=== PATIENT | male | born 2005 | race Hispanic/Latino ===

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

== ENCOUNTER 2025-07-27 13:07 | Observation (INO) | payer OTHER, SELFPAY ==
--- OUTSIDE RECORDS SUMMARY | 2025-07-27 13:11 | XMS REPORT | Continuity of Care Document ---
Author Name Unknown Address [address] [place] [address] [facility] [place] Address [address] [place] [address] Care Team Providers Care Economics Department Chair Name Role Phone Yazmin Dutta Primary Care Physician [phone] Kaylah Benedict Attending Clinician Unavailable Israel Tamez DO Attending Clinician + [phone] Yazmin Dutta Attending Clinician [phone] REESE SOUSA Attending Clinician Unavailab le Allergies, Adverse Reactions, Alerts Allergy Name Allergy Type Status Severity Reaction(s) Onset Date Inactive Date Treating Clinician Comments Source NO KNOWN ALLERGIE S Drug Class Active [facility] Social History Social Habit Start Date Stop Date Quantity Comments Source History of tobacco use Cigarette Smoker [facility] Gender identity Torrey rojelio Sauceda [facility] Sexual orientation [facility]orial Sohail [facility] Sex 2025-07-26 14:11:55 2025-07-26 14:11:55 Male (finding) [facility] Tobacco use and exposure 2025-07-26 00:00:00 2025-07-26 00:00:00 Smokeless tobacco non-user [facility] History of Social function 2025-07-26 00:00:00 2025-07-26 00:00[facility] Alcoholic beverage intake 2025-04-05 00:00:00 2025-04-05 00:00:00 Ex-drinker (finding) [facility] Sex assigned at 2005 00:00:00 2005 00:00:00 [facility] Smoking Status Start Date Stop Date Source Never smoked tobacco Wilfrid Sauceda [facility] Ex-smoker 2025-03-22 00:00:00 2025-03-22 00:00:00 [facility] Medications Ordered Medication Name Filled Medication Name Start Date Stop Date Current Medication? Ordering Clinician Indication Dosage Frequency Signature (SIG) Comments Components Source sodium chloride 0.9 % bolus 1,000 mL [id number] 2024-10 15:10: 00 07-26 16:01 :00 No 1000mL 1,000 mL, Intravenou s, at 2,000 mL/hr, Administer over 30 Minutes, Once, On Thu07/26/25 at 1510, For 1 dose Wilfrid Sauceda [facility] lisinopriL 10 mg tablet 04-05 00:00: 00 Yes [id number] 10mg Take 1 tablet by mouth in the morning. [facility] Magnesium 250 mg Tab 03-22 15:53: 26 Yes Take by mouth. [facility] lisinopriL 5 mg tablet 03-22 00:00: 00 04-05 00:00 :00 No [id number] 5mg Take 1 tablet by mouth in the morning for 14 days. [facility] Vital Signs Vital Name Observation Time Observation Value Comments S ana lilia Systolic blood pressure 2025-07-26 17:21:00 129 mm[Hg] [facility] Diastolic blood pressure 2025-07-26 17:21:00 79 mm[Hg] [facility] Heart rate 2025-07-26 17:21:00 88 /min Pritesh lee [facility] Body temperature 2025-07-26 17:21:00 36.94 Chelo [facility] Respiratory rate 2025-07-26 17:21:00 18 /min [facility] Oxygen saturation in Arterial blood by Pulse oximetry 2025-07-26 17:21:00 100 /min [facility] Body height 2025-07-26 14:24:00 180.3 cm Torreyroger [facility]ady [facility] Body weight 2025-07-26 14:24:00 81.647 kg [facility] BMI 2025-07-26 14:24:00 25.10 kg/m2 Torrey [facility]dwellady [facility] Systolic blood pressure 2025-04-05 18:56:00 134 mm[Hg] [facility] Diastolic blood pressure 2025-04-05 18:56:00 87 mm[Hg] [facility] Heart rate 2025-04-05 18:56:00 53 /min Unive [facility] Respiratory rate 2025-04-05 18:56:00 16 /min [facility] Body height 2025-04-05 18:56:00 165.1 cm [facility] Body weight 2025-04-05 18:56:00 67.541 kg [facility] BMI 2025-04-05 18:56:00 24.78 kg/m2 [facility] Oxygen saturation in Arterial blood by Pulse oximetry 2025-04-05 18:56:00 100 /min [facility] Systolic blood pressure 2025-03-22 20:53:00 147 mm[Hg] [facility] Diastolic blood pressure 2025-03-22 20:53:00 92 mm[Hg] [facility] Heart rate 2025-03-22 20:52:00 62 /min [facility] height 2025-03-22 20:52:00 165.1 cm [facility] Body weight 2025-03-22 20:52:00 68.947 kg [facility] BMI 2025-03-22 20:52:00 25.29 kg/m2 [facility] Oxygen saturation in Arterial blood by Pulse oximetry 2025-03-22 20:52:00 99 /min [facility] Procedures Procedure Date / Time Performed Performing Clinician Source TROPONIN I HIGH SENSITIVITY CARESET (1ST HR) 2025-07-26 16:25:00 Angel Porter [facility] XR CHEST 1 VIEW 2025-07-26 15:41:06 Angel Porter [facility] COMPREHENSIVE METABOLIC PANEL 2025-07-26 15:30:00 Angel Porter [facility] CREATINE KINASE (CK TOTAL) 2025-07-26 15:30:00 Angel Porter [facility] LIPASE LEVEL 2025-07-26 15:30:00 Angel Porter [facility] COMPLETE BLOOD COUNT W/DIFF AND PLATELET 2025-07-26 15:30:00 Angel Porter [facility] TROPONIN I HIGH SENSITIVITY CARESET 2025-07-26 15:30:00 German Angel Tolbert [facility] TROPONIN I HIGH SENSITIVITY CARESET (BASELINE) 2025-07-26 15:30:00 Angel Porter [facility] COMPLETE BLOOD COUNT 2025-07-26 15:30:00 GermanAnthony Tomasz [facility] AUTOMATED DIFFERENTIAL 2025-07-26 15:30:00 GermanAlphonse orly Tolbert [facility] ECG 12 lead [facility] Plan of Care Planned Activity Planned Date Details Comments Source Encounters Start Date/Time End Date/Time Encounter Type Admission Type Attending [facility] Care Department Encounter ID Source 2025-07-26 00:00:00 2025-07-26 22:03:05 [facility] [id number] [facility] 2025-07-26 14:59:00 2025-07-26 17:22:00 Emergency E Israel Tamez [facility] [id number] [facility] 2025-04-05 14:00:00 2025-04-05 14:19:20 [facility] [id number] [facility] 2025-03-25 00:00:00 2025-03-25 12:54:05 Telephone PinedaMariYazmin [facility] [id number] [facility] 2025-03-24 00:00:00 2025-03-24 13:10:30 Telephone Mari Pinedaanne [facility] [id number] [facility] 2025-03-23 09:45:00 2025-03-23 09:47:55 Nurse Visit R REESE SOUSA [facility] [id number] [facility] 2025-03-22 16:00:00 2025-03-22 16:20:36 [facility] [id number] [facility] Results Test Description Test Time Test Comments Results Resul t Comments Source XR chest 1 view 2025-07-26 15:47:05 No acute findings. ELECTRONICALLY SIGNED BY CARLOS CASILLAS MD ON 07/26/2025 AT 15:47.PROCEDURE INFORMATION: Exam: XR Chest Exam date and time: 07/26/2025 3:37 PM Age: 19 years old Clinical indication: Pain TECHNIQUE: Imaging protocol: Radiologic exam of the chest. Views: 1 view. COMPARISON: No relevant prior studies available. FINDINGS: Lungs: Unremarkable. No consolidation. Pleural spaces: Unremarkable. No pleural effusion. No pneumothorax. Heart/Mediastinum: Unremarkable. No cardiomegaly. Bones/joints: No acute findings. Carlos Casillas MD - 07/26/2025Formattin g of this note might be different from the original.PROCEDURE INFORMATION: Exam: XR Chest Exam date and time: 07/26/2025 3:37 PM Age: 19 years old Clinical indication: Pain TECHNIQUE: Imaging protocol: Radiologic exam of the chest. Views: 1 view. COMPARISON: No relevant prior studies available. FINDINGS: Lungs: Unremarkable. No consolidation. Pleural spaces: Unremarkable. No pleural effusion. No pneumothorax. Heart/Mediastinum: Unremarkable. No cardiomegaly. Bones/joints: No acute findings. IMPRESSION:No acute findings. ELECTRONICALLY SIGNED BY CARLOS CASILLAS MD ON 07/26/2025 AT 15:47. [facility] Epic Notes Date/Time Note Provider Source * [place] Suicide Severity Rating Scale (Screener/Recent Self-Report) Question Answer Date of Assessment Author 1. Wish to be (Past 1 Month) No 025 5:20 PM CDT Belen Vera, JANET 2. Non-Specific Active Suici esther Thoughts (Past 1 Month) No 07/26/2025 5:20 PM CDT Doris Vera, JANET 6. Suicidal Behavior (Lifetime) No 5:20 PM CDT Belen Vera, JANET [id number] 22:03:05* Kaylah Benedict - 07/26/2025 9:54 PM CDT Patient FTF to request assistance with healthcare services. CHW educated patient on Educate on ER usage or provided CHW educated patient on Good Rx or provided CHW educated patient on Nurse Health Line or provided CHW educated patient on PCP/Medical Home or provided Continuing Care Good Rx No address on file Website: [email or web address] Request Status: Pending - No Request Sent Services: Prescription Assistance Resource for: Financial Resource Strain Nurse Health Line No address on file Request Status: Pending - No Request Sent Services: Help Hotlines Resource for: Caregiver Health, Depression, Stress [facility] ([facility]) - [facility] [address], [place] [address] Website: [email or web address] Request Status: Pending - No Request Sent Services: Disease Management, Disease Screenings, Health Education, Primary Care Resource for: Adolescent Education, Caregiver Education and Work, Child Education Languages: Norwegian, Irish Cost: Reduced Cost Hours of Operation Thursday -- Thursday 8:00 AM - 6:00 PM Thursday 8:00 AM - 6:00 PM Thursday 8:00 AM - 6:00 PM 8:00 AM - 6:00 PM Thursday 8:00 AM - 6:00 PM Thursday -- resource to patient. Follow up needed active. Follow up by ER Navigator [id number] 22:03:05 [id number] 22:03:05 [id number] 17:22:36* [id number] 17:22:36* Calculated C-SSRS Risk Score (Lifetime/Recent) Answer Date of Assessment Author No Risk Indicated 07/26/2025 5:20 PM ASTERT Belen Vera, JANET * [place] Suicide Severity Rating Scale (Screener/Recent Self-Report) Question Answer Date of Assessment Author 1. Wish to be (Past 1 Month) No 025 5:20 PM ASTERT Belen Vera, JANET 2. Non-Specific Active Suici esther Thoughts (Past 1 Month) No 07/26/2025 5:20 PM ASTERT Doris Vera, JANET 6. Suicidal Behavior (Lifetime) No 5:20 PM ASTERT Belen Vera, JANET [id number] 17:22:36Pending Results Health Maintenance Due Date Last Done Comments Annual Physical 2008 Varicella Vaccines (1 of 2 - 13+ 2-dose series) 2018 HPV Vaccines (1 - Male 3-dos e series) 2020 DTaP/Tdap/Td Vaccines (1 - Tdap) 2024 Hepatitis B Vaccines (1 of 3 - 19+ 3-dose series) 2024 Influenza Vaccine (#1) 2025 Respiratory Syncytial Virus (RSV) Adult Series (1 - 1-dose 75+ series) 2080 HIB Vaccines Aged Out No longer eligi ble based on patient's age to complete this topic Hepatitis A Vaccines Aged Out No long er eligible based on patient's age to complete this topic IPV Vaccines Aged Out No longer eligi ble based on patient's age to complete this topic Meningococcal Vaccine Aged Out No haley mari eligible based on patient's age to complete this topic Pneumococcal Vaccine: Pediat rics (0 to 5 Years) and At-Risk Patients (6 to 64 Years) Aged Out No longer eligible b ased on patient's age to complete this topic Rotavirus Vaccines Aged Out No longer eligible based on patient's age to complete this topic [id number] 17:22:36 Diagnosis Tingling - Primary Disturbance of skin sensation [id number] 17:22:36 [id number] 12:53:19 Images from the original note were not included. Notified patient: Yazmin Pineda FNP [facility] Nurse Please notify the patient of the following lab results: Your recent labs showed mildly decreased HDL( healthy cholesterol). This can improve with lifestyle changes. I recommend exercise such as walking 30 minutes 4-5 times a week , avoiding alcohol and maintaining a healthy weight. Diet admas you can follow a mediterranean diet( lean meats, low fat dairy products, cook with olive oil, avoid palm oil, eat low fat breads/cereals/grains, avoid fried foods). I also recommend reducing white bread, white potatoes, white rice, white bread, sodas, candies and eating more complex grains like quinoa, brown rice, vegetables and fruits. No evidence of anemia or infection. No evidence of kidney dysfunction or liver dysfunction. Potassium is slightly elevated which may be because of mild dehydration. Please make sure you are drinking adequate amounts of water. Your thyroid is functioning properly. No evidence of diabetes. These labs are essentially normal and can be repeated at next annual physical exam. Patient verbal understanding and had no questions or concerns at this time. Za Paulino MAChillicothe [id number] 12:57:51 Chart notes reviewed RX for Lisinopril sent to pharmacy on 03/22 per provider. Spoke with patient. Patient states he went to pharmacy on 03/23 to pickling grader RX and per pharmacy no RX received. Notified patient clinic will contact pharmacy. Patient verbalized understanding. Pharmacy called per nurse. Spoke with Sami with [facility] pharmacy. Per pharmacy RX was received and was entered incorrectly by pharmacy. Sami updated patient and states he will notify patient RX is available for pickling grader. Mariola Delacruz [id number] 10:42:17 Tete Yadav is a 19 year old male Calling to have prescription of lisinopriL resent to pharmacy. [facility]
[2025-07-27] MEDS ORDERED: ASPIRIN 81 MG CHEWABLE TABLET ONE (13:48)
[2025-07-27 14:14] LABS: Absolute Lymphocytes (CBC) 1.1 K/uL (0.7-4.9); Hematocrit 44.6 % (39.6-49.0); Hemoglobin 15.1 g/dL (13.6-17.9); MCH 30.2 pg (27.0-35.0); MCHC 33.9 g/dL (32.0-36.0); MCV 88.9 fL (80-100); MPV 9.5 fL (7.6-11.3); Nucleated RBC Absolute Count 0.0 (0-0); Nucleated Red Blood Cells % 0.1 % (0-0); RBC Red Blood Cell Count 5.01 M/uL (4.33-5.43); White Blood Count 7.60 thou/uL (4.3-10.9)
[2025-07-27 14:30] LABS: ALT/SGPT 34.0 U/L (16-61); AST/SGOT 16.0 U/L (15-37); Albumin 3.8 g/dL (3.4-5.0); Albumin/Globulin Ratio 1.1 (1.1-1.8); Alkaline Phosphatase 111.0 U/L (45-117); Anion Gap 8.8 mEq/L (5.0-15.0); BUN Blood Urea Nitrogen 9.0 mg/dL (7-18); Bilirubin Indirect, Calculated 1.3 mg/dL (0.2-0.8); Globulin 3.4 g/dL (2.3-3.5); Glucose Level 104.0 mg/dL (74-106); Magnesium 2.1 mg/dL (1.6-2.4); Potassium 3.8 mEq/L (3.5-5.1)
[2025-07-27 14:34] LABS: Troponin High Sensitivity 63.1 pg/mL (<58.9)
--- NOTE | 2025-07-27 14:42 | EDPHYS ---
Physician Documentation [facility] Name: Robyn Yadav Age: 19 yrs Sex: Male : 2005 Arrival Date: 07/27/2025 Time: 13:07 Bed 6 Private MD: ED Physician Anthony Gar HPI: 07/27 13:39 This 19 yrs old Male presents to ER via Ambulatory with complaints of Abnormal ms3 Lab Results. 13:39 19-year-old male with past medical history of hypertension presents to the emergency wy3 department for chest pain, cold hands, shortness of breath that developed yesterday. Patient states he is currently not having pain at this time. Patient denies nausea or vomiting. Patient does endorse shortness of breath.. Historical: - Allergies: 13:20 No Known Allergies; dd2 - Home Meds: 13:20 lisinopril 10 mg Oral tablet daily for hypertension [Active]; dd2 - PMHx: 13:20 Hypertensive disorder; dd2 - PSHx: 13:20 None; dd2 - Immunization history:: Adult Immunizations up to date. - Infectious Disease History:: Denies. - Social history:: Smoking status: Reported history of juuling and/or vaping. ROS: 13:39 Constitutional: Negative for fever, and chills. Respiratory: Negative for shortness of ms3 breath, cough, wheezing, and pleuritic chest pain, 13:39 Abdomen/GI: Negative for abdominal pain, nausea, vomiting, diarrhea, and constipation, MS/Extremity: Negative for injury and deformity, Skin: Negative for injury, rash, and discoloration, 13:39 Cardiovascular: Positive for chest pain, Exam: 13:39 Constitutional: This is a well developed, well nourished patient who is awake, alert, ms3 and in no acute distress. Cardiovascular: Regular rate and rhythm with a normal S1 and S2. No gallops, murmurs, or rubs. Normal PMI, no JVD. No pulse deficits. Respiratory: Lungs have equal breath sounds bilaterally, clear to auscultation and percussion. No rales, rhonchi or wheezes noted. No increased work of breathing, no retractions or nasal flaring. Abdomen/GI: Soft, non-tender, with normal bowel sounds. No distension or tympany. No guarding or rebound. No evidence of tenderness throughout. Skin: Warm, dry with normal turgor. Normal color with no rashes, no lesions, and no evidence of cellulitis. MS/ Extremity: Pulses equal, no cyanosis. Neurovascular intact. Full, normal range of motion. 14:28 ECG was reviewed by the Attending Physician. ms3 Vital Signs: 13:18 BP 137 / 70; Pulse 75; Resp 16; Temp 98.3; Pulse Ox 99% on R/A; Weight 68.04 kg; Height dd2 5 ft. 5 in. ; Pain 5/10; 14:06 BP 143 / 79; Pulse 56; Resp 18; Temp 97.8; Pulse Ox 98% on R/A; nh2 15:00 BP 129 / 87; Pulse 74; Resp 15; Pulse Ox 100% on R/A; nh2 16:53 BP 130 / 94; Pulse 64; Resp 18; Temp 97.2(TE); Pulse Ox 100% on R/A; nh2 13:18 Body Mass Index 24.96 (68.04 kg, 165.1 cm) - Percentile 72.7 % dd2 13:18 Pain Scale: Adult dd2 MDM: 13:39 Medical Screening Exam initiated ms3 13:39 Differential diagnosis: abnormal EKG, acute myocardial infarction, coronary artery ms3 disease chest wall pain. Scoring Tools PERC Rule for PE Age > /= 50 No (0) HR > /= 100 No (0) O2 Sat Room Air < 95% No (0) Unilateral leg swelling No (0) Hemoptysis No (0) Recent surgery or trauma </= 4 weeks ago, requiring treatment with General Anesthesia No (0) Prior PE or DVT No (0) Hormone use No (0). 14:43 HEART Score: History: Slightly Suspicious (0), ECG: Non specific repolarization ms3 disturbance / LBTB / PM (1), Age: < or = 45 years (0), Risk Factors: 1 or 2 risk factors (1), Troponin: > 1 and < 3 x normal limit (1), Total Score = 3. Data reviewed: vital signs, nurses notes, lab test result(s), EKG, radiologic studies, and as a result, I will admit patient. Consideration of Admission/Observation Patient was admitted/placed on observation. Management of patient was discussed with the following: Hospitalist: Dr Walton. Derrick Worker: Dr Mi. I considered the following discharge prescriptions or medication management in the emergency department Medications were administered in the Emergency Department. See MAR. Independent interpretation of the following test(s) in the Emergency Department EKG: See my EKG interpretation above. Counseling: I had a detailed discussion with the patient and/or guardian regarding the historical points, exam findings, and any diagnostic results supporting the discharge/admit diagnosis, lab results, the need for further work-up and treatment in the hospital. ED course: Discussed elevated troponin with patient and recommendation for observation. Patient understands and agrees with plan. Discussed case with hospitalist group and they will observe patient. Patient was discussed with Dr. Mi and he would like the troponins trended. 07/27 13:36 Order name: Basic Metabolic Panel; Complete Time: 14:36 ms3 07/27 13:36 Order name: CBC with Diff; Complete Time: 14:36 ms3 07/27 13:36 Order name: LFT's; Complete Time: 14:36 ms3 07/27 13:36 Order name: Magnesium; Complete Time: 14:36 ms3 07/27 13:36 Order name: Troponin HS; Complete Time: 14:36 ms3 07/27 14:50 Order name: D-Dimer ms3 07/27 14:50 Order name: NT PRO-BNP ms3 07/27 14:50 Order name: PT-INR ms3 07/27 14:50 Order name: CRP ms3 07/27 15:13 Order name: UDS ms3 07/27 16:07 Order name: Basic Metabolic Panel EDMS 07/27 16:07 Order name: Basic Metabolic Panel EDMS 07/27 16:07 Order name: CBC with Automated Diff EDMS 07/27 16:07 Order name: CBC with Automated Diff EDMS 07/27 16:07 Order name: Troponin High Sensitivity EDMS 07/27 16:07 Order name: Troponin High Sensitivity EDMS 07/27 16:07 Order name: Troponin High Sensitivity EDMS 07/27 13:36 Order name: XRAY Chest (1 view) ms3 07/27 16:07 Order name: Echo with Doppler EDMS 07/27 13:36 Order name: EKG; Complete Time: 13:37 ms3 07/27 15:15 Order name: EKG; Complete Time: 15:16 ms3 07/27 16:05 Order name: CONS Physician Consult EDMS 07/27 13:36 Order name: Cardiac monitoring; Complete Time: 14:00 ms3 07/27 13:36 Order name: EKG - Nurse/Tech; Complete Time: 14:00 ms3 07/27 13:36 Order name: IV Saline Lock; Complete Time: 14:00 ms3 07/27 13:36 Order name: Labs collected and sent; Complete Time: 14:00 ms3 07/27 13:36 Order name: O2 Per Protocol; Complete Time: 14:00 ms3 07/27 13:36 Order name: O2 Sat Monitoring; Complete Time: 14:00 ms3 EC:28 Rate is 72 beats/min. Rhythm is regular. QRS [place] is Normal. [place] interval is normal. ms3 Clinical impression: NSR w/ Non-specific ST/T Changes. Interpreted by me. Reviewed by me. Administered Medications: 14:00 Drug: Aspirin PO Chewable Tablet 324 mg PO once; 81 mg tablets x 4 Route: PO; nh2 15:00 Follow up: Response: No adverse reaction nh2 Disposition Summary: 07/27/25 14:42 Hospitalization Ordered Notes: Hospitalization Status: Observation ms3 Provider: Maycol Walton ms3 Location: Telemetry/MedSurg (observation) ms3 Condition: Stable ms3 Problem: new ms3 Symptoms: are unchanged ms3 Bed/Room Type: Standard ms3 Room Assignment: 403(07/27/25 16:02) bc6 Diagnosis - Elevated troponin ms3 - Chest pain, unspecified ms3 - Essential (primary) hypertension ms3 Discharge Instructions: - Discharge Summary Sheet iw Forms: - Family Work Release iw - Medication Reconciliation Form ms3 - SBAR form ms3 - Leadership Thank You Letter ms3 Signatures: Dispatcher [employer] EDMS Anthony Gar, DO DO ms3 Bessy Alford bc6 ELIZABETH WELSH RN RN dd2 Jorge Gaines Jr RN RN nh2 Corrections: (The following items were deleted from the chart) 16:02 14:42 ms3 bc6
--- NOTE | 2025-07-27 14:42 | ER ---
Nurse's Notes [facility] Name: Robyn Yadav Age: 19 yrs Sex: Male : 2005 Arrival Date: 07/27/2025 Time: 13:07 Bed 6 Private MD: Diagnosis: Elevated troponin;Chest pain, unspecified;Essential (primary) hypertension Presentation: 07/27 13:18 Chief complaint: Patient states: BEGAN HAVING CHEST TIGHTNESS, HANDS COLD AND BODY dd2 TINGLING YESTERDAY AT NOON. WENT TO [facility] ER AND D/C HOME. MOM TOOK TO URGENT CARE NEXT LEVEL AND NURSE ADVISED TO COME TO ER FOR ABNORMAL EKG. Coronavirus screen: At this time, the client does not indicate any symptoms associated with coronavirus-19. Ebola Screen: No symptoms or risks identified at this time. Initial Sepsis Screen: Does the patient meet any 2 criteria? No. Patient's initial sepsis screen is negative. Does the patient have a suspected source of infection? No. Patient's initial sepsis screen is negative. Risk Assessment: Do you want to hurt yourself or someone else? Patient reports no desire to harm self or others. Onset of symptoms was July 26, 2025 at 12:00. 13:18 Method Of Arrival: Ambulatory dd2 13:18 Acuity: ALIN 3 dd2 Triage Assessment: 13:20 General: Appears in no apparent distress. well groomed, well nourished, Behavior is dd2 cooperative, appropriate for age, anxious. Pain: Complains of pain in chest. Cardiovascular: Reports chest pain, JVD is absent Patient's skin is warm and dry. Historical: - Allergies: 13:20 No Known Allergies; dd2 - Home Meds: 13:20 lisinopril 10 mg Oral tablet daily for hypertension [Active]; dd2 - PMHx: 13:20 Hypertensive disorder; dd2 - PSHx: 13:20 None; dd2 - Immunization history:: Adult Immunizations up to date. - Infectious Disease History:: Denies. - Social history:: Smoking status: Reported history of juuling and/or vaping. Screenin:00 [facility] ED Fall Risk Assessment (Adult) History of falling in the last 3 months, nh2 including since admission No falls in past 3 months (0 pts) Confusion or Disorientation No (0 pts) Intoxicated or Sedated No (0 pts) Impaired Gait No (0 pts) Mobility Assist Device Used No (0 pt) Altered Elimination No (0 pt) Score/Fall Risk Level 0 - 2 = Low Risk Oriented to surroundings, Maintained a safe environment, Educated pt \T\ family on fall prevention, incl call for assistance when getting out of bed, Assessed \T\ reinforced patient's understanding of fall precautions. Abuse screen: Denies threats or abuse. Denies injuries from another. Nutritional screening: No deficits noted. Tuberculosis screening: No symptoms or risk factors identified. Assessment: 13:40 Reassessment: pt just brought to bed from triage, assumed care as primary nurse at this nh2 time. 14:00 General: Appears in no apparent distress. Behavior is cooperative, anxious. Pain: nh2 Complains of pain in chest Pain does not radiate. Pain currently is 4 out of 10 on a pain scale. Quality of pain is described as pressure Pain began 1 day ago. Is intermittent. Neuro: Level of Consciousness is awake, alert, obeys commands, Oriented to person, place, time, situation, Appropriate for age. Cardiovascular: Patient's skin is warm and dry. Rhythm is sinus rhythm. Respiratory: Reports shortness of breath on exertion Airway is patent Trachea midline Respiratory effort is even, unlabored, Respiratory pattern is regular, symmetrical, Breath sounds are clear bilaterally. GI: Abdomen is round non-distended, Patient currently denies nausea, vomiting. : No signs and/or symptoms were reported regarding the genitourinary system. EENT: No signs and/or symptoms were reported regarding the EENT system. Derm: Skin is intact, Skin is dry, Skin is pink, warm \T\ dry. Skin temperature is warm. Musculoskeletal: Circulation, motion, and sensation intact. Range of motion: intact in all extremities. 15:00 Reassessment: Patient and/or family updated on plan of care and expected duration. Pain nh2 level reassessed. Patient is alert, oriented x 3, equal unlabored respirations, skin warm/dry/pink. 16:00 Reassessment: Patient and/or family updated on plan of care and expected duration. Pain nh2 level reassessed. Patient is alert, oriented x 3, equal unlabored respirations, skin warm/dry/pink. Patient denies pain at this time. Vital Signs: 13:18 BP 137 / 70; Pulse 75; Resp 16; Temp 98.3; Pulse Ox 99% on R/A; Weight 68.04 kg; Height dd2 5 ft. 5 in. ; Pain 5/10; 14:06 BP 143 / 79; Pulse 56; Resp 18; Temp 97.8; Pulse Ox 98% on R/A; nh2 15:00 BP 129 / 87; Pulse 74; Resp 15; Pulse Ox 100% on R/A; nh2 16:53 BP 130 / 94; Pulse 64; Resp 18; Temp 97.2(TE); Pulse Ox 100% on R/A; nh2 13:18 Body Mass Index 24.96 (68.04 kg, 165.1 cm) - Percentile 72.7 % dd2 13:18 Pain Scale: Adult dd2 ED Course: 13:11 Patient arrived in ED. al6 13:15 Anthony Gar DO is Attending Physician. ms3 13:20 Triage completed. dd2 13:20 Arm band placed on right wrist. dd2 13:46 Jorge Gaines Jr, RN is Primary Nurse. nh2 14:00 Awaiting for x-ray. nh2 14:00 Patient has correct armband on for positive identification. Bed in low position. Call nh2 light in reach. Side rails up X 1. Provided Education on: using call light for assistance. 14:00 Inserted saline lock: 20 gauge in right antecubital area, using aseptic technique. nh2 Blood collected. Flushed with 10 mL NS. 14:38 XRAY Chest (1 view) In Process Unspecified. EDMS 14:40 Maycol Walton MD is Hospitalizing Provider. ms3 16:54 No provider procedures requiring assistance completed. Patient admitted, IV remains in nh2 place. Administered Medications: 14:00 Drug: Aspirin PO Chewable Tablet 324 mg PO once; 81 mg tablets x 4 Route: PO; nh2 15:00 Follow up: Response: No adverse reaction nh2 Medication: 14:00 VIS not applicable for this client. nh2 Outcome: 14:42 Decision to Hospitalize by Provider. ms3 17:16 Admitted to Tele accompanied by tech, via wheelchair, room 403, with chart, nh2 17:16 Condition: stable 17:16 Instructed on the need for admit, Demonstrated understanding of instructions, follow-up care, 17:18 Patient left the ED. iw Signatures: Dispatcher [employer] EDMS [place] Mckeon RN RN iw Anthony Gar, DO ms3 ELIZABETH WELSH RN RN dd2 Jorge Gaines Jr, RN RN nh2 [place] al6
--- NOTE | 2025-07-27 15:00 | P.CNS ---
Date of Consult: 07/27/25 Reason for Consult: elevated troponin Requesting Physician: Anthony Gar Chief Complaint: Chest pain History of Present Illness: 19 y.o. male with PMH HTN (on lisinopril, noncompliant), nicotine use (vaping), who presents with chest pain and abnormal ECG. Family at bedside. Patient reports episode of epigastric sharp and squeezing chest discomfort while at work. Pain was initially severe, but is now mild. Patient states that the pain was associated with numbness of his bilateral upper and lower extremities. He denies any significant prior personal or family history of cardiovascular disease. Small children in the house may have had viral symptoms recently. Patient endorses "allergies", possible viral syndrome but no fever/chills. HSTnI 63. ECG showed LVH with strain, PVC x 1. CXR shows no acute intrathoracic abnormalities. No significant family history of premature CAD. Allergies No Known Allergies Allergy (Unverified 03/05/16 11:18) Home medications list reviewed: Yes (lisinopril 10 mg daily) - Past Medical/Surgical History Diabetic: No -: Hypertension - Social History Smoking Status: Current every day smoker Physical Examination BP 137 / 70; Pulse 75; Resp 16; Temp 98.3; Pulse Ox 99% on R/A; Weight 68.04 kg; Height 5 ft. 5 in. General: Alert, In no apparent distress, Oriented x3, Other (anxious) HEENT: Atraumatic, Normocephalic, EOMI Neck: JVD not distended Respiratory: Clear to auscultation bilaterally Cardiovascular: No edema, Regular rate/rhythm, Normal S1 S2, No rubs, No murmurs Capillary refill: <2 Seconds Gastrointestinal: Normal bowel sounds Musculoskeletal: No clubbing, No swelling Integumentary: No rashes Neurological: Normal speech Laboratory Data (last 24 hrs) 07/27/25 07/27/25 13:56 13:56 WBC 7.60 Hgb 15.1 Hct 44.6 Plt Count 230 Sodium 140 Potassium 3.8 BUN 9 Creatinine 1.07 Glucose 104 Magnesium 2.1 Total Bilirubin 1.7 H AST 16 ALT 34 Alkaline Phosphatase 111 Imagings Data: ECG and imaging reviewed - Problems (1) Chest pain Current Visit: Yes Status: Acute Plan: Etiology unclear, possibly cardiac (?myopericarditis). Mild elevation in hsTnI (63). Trend hsTnI until peak. Check TSH, ESR, CRP, DDimer. Repeat ECG to r/o dynamic changes. Echocardiogram. Qualifiers: Chest pain type: unspecified Qualified Code(s): R07.9 - Chest pain, unspecified (2) Hypertension Current Visit: Yes Status: Chronic Plan: Non-compliant with lisinopril x 1 month per patient. Qualifiers: Hypertension type: unspecified Qualified Code(s): I10 - Essential (primary) hypertension (3) Elevated troponin Current Visit: Yes Status: Acute Plan: as above. (4) Nicotine abuse Current Visit: Yes Status: Chronic Plan: Education provided regarding risks associated with nicotine use. Continue to support cessation efforts. Conclusions/Impression: Thank you for the consultation. Please call with any questions.
--- NOTE | 2025-07-27 15:19 | RAD REPORT ---
EXAMINATION: ONE VIEW CHEST XR CLINICAL INDICATION: Male, 19 years old.,CHEST PAIN TECHNIQUE: Frontal chest projection is submitted. Examination is limited by patient positioning and t echnique. COMPARISON: 11/13/2020 FINDINGS: The lungs are well inflated and clear. No pneumothorax or sizable effusion. The heart is normal in s ize. Mediastinal contours are unremarkable. IMPRESSION: No acute intrathoracic abnormalities.
[2025-07-27] MEDS ORDERED: ACETAMINOPHEN 500 MG TAB PO PRN (16:03)
--- NOTE | 2025-07-27 16:15 | P.HP ---
Certification for Inpatient Patient admitted to: Observation With expected LOS: <2 Midnights Practitioner: I am a practitioner with admitting privileges, knowledge of patient current condition, hospital course, and medical plan of care. Services: Services provided to patient in accordance with Admission requirements found in Title 42 Section 412.3 of the Code of Federal Regulations Patient History Date of Service: 07/27/25 Reason for admission: Chest pain History of Present Illness: 19yo M, PMH: HTN (previously on lisionpril) presents to ED due to chest pressure and abnormal EKG. He reports palpitations and squeezing pressure/discomfort yesterday after lunch. He was at work ([employer]) when this occurred. He presented to [facility] ER, trop 30s x2, EKG with t wave inversions/flattening. He was discharged home. Mom took him to urgent care today, due to some ongoing shortness of breath. There, he was told his EKG was abnormal and should come to ER. He denies any chest pain right now, but feels some slight tightness and shortness of breath. Troponin was mildly elevated in 60s. EKG with LVH, and PVC. Patient was seen by Cardiology, Dr. Mi in ER, who recommended obs and trend trop. Patient states he was diagnosed with HTN ~6 months ago. He was having headaches and not feeling well. He was started on lisinopril, however he has not been compliant - stopped taking ~2 months ago. Reports runny nose since Thursday - attributes to allergies. no fever Allergies No Known Allergies Allergy (Unverified 03/05/16 11:18) - Past Medical/Surgical History Diabetic: No -: Hypertension Past Surgical History: Reviewed- Non-Contributory - Social History Smoking Status: Current some day smoker Alcohol use: No Place of Residence: Home Review of Systems 10-point ROS is otherwise unremarkable Physical Examination - Physical Exam General: In no apparent distress, Oriented x3 HEENT: Mucous membr. moist/pink Neck: No LAD Respiratory: Clear to auscultation bilaterally, Normal air movement Cardiovascular: No edema, Regular rate/rhythm Gastrointestinal: Soft and benign, No tenderness - Studies Laboratory Data (last 24 hrs) 07/27/25 07/27/25 13:56 13:56 WBC 7.60 Hgb 15.1 Hct 44.6 Plt Count 230 Sodium 140 Potassium 3.8 BUN 9 Creatinine 1.07 Glucose 104 Magnesium 2.1 Total Bilirubin 1.7 H AST 16 ALT 34 Alkaline Phosphatase 111 Assessment and Plan - Advance Directives Does patient have a Living Will: No Does patient have a Durable POA for Healthcare: No Physician Review Additional Text: Problem List Chest pain, r/o ACS HTN obs overnight risk: untreated HTN, occasional vapes trend trop GDMT echo ordered d-dimer ordered, check BNP cardiology consulted, evaluated patient recent nasal drip/congestion, he attributes to allergies, possible viral syndrome. Code: full Dispo: home, ~24hrs Time Spent Managing Pts Care (In Minutes): 60
[2025-07-27 16:16] LABS: METHAMPHETAM NEGATIVE (NEGATIVE); THC Cannibis NEGATIVE (NEGATIVE)
[2025-07-27 17:10] LABS: D-Dimer 0.387 FEUug/mL (0-0.500); PT Prothrombin Time 13.2 SECONDS (10-13.0); Protime INR 1.17
[2025-07-27 17:37] VITALS: BMI 25.0
[2025-07-27 17:44] VITALS: O2SAT 100
[2025-07-28 00:21] LABS: NT PRO-BNP 98 pg/mL (<125)
[2025-07-28 00:22] LABS: C-Reactive Protein < 2.90 mg/L (<3.00)
[2025-07-28] MEDS ORDERED: METOPROLOL TAR 25 MG TAB PO SCH (06:00)
[2025-07-28 07:17] LABS: Absolute Lymphocytes (CBC) 1.9 K/uL (0.7-4.9); Hematocrit 43.5 % (39.6-49.0); Hemoglobin 15.1 g/dL (13.6-17.9); MCH 30.6 pg (27.0-35.0); MCHC 34.7 g/dL (32.0-36.0); MCV 88.4 fL (80-100); MPV 10.0 fL (7.6-11.3); Nucleated RBC Absolute Count 0.0 (0-0); Nucleated Red Blood Cells % 0.1 % (0-0); RBC Red Blood Cell Count 4.93 M/uL (4.33-5.43); White Blood Count 7.80 thou/uL (4.3-10.9)
[2025-07-28 07:41] LABS: Anion Gap 6.0 mEq/L (5.0-15.0); BUN Blood Urea Nitrogen 10.0 mg/dL (7-18); Glucose Level 105.0 mg/dL (74-106); Magnesium 2.2 mg/dL (1.6-2.4); Potassium 4.0 mEq/L (3.5-5.1); Thyroid Stimulating Hormone 3.44 uIU/mL (0.358-3.740)
[2025-07-28] MEDS: ASPIRIN EC 81 MG TAB PO SCH (07:43)
--- NOTE | 2025-07-28 11:50 | P.PN ---
Date of Service: 07/28/25 Subjective: Physical Exam: GEN: Alert, oriented, NAD CV: Regular rate and rhythm, no edema Pulm:Nonlabored respirations on room air, clear bilaterally ABD: soft, nontender, nondistended Neuro: Normal speech, normal affect Problem List: Chest pain, r/o ACS Hypertension on admission, presents with chest pressure and abnormal EKG. Trend troponins - mildly elevated. Monitor on telemetry EKG with LVH, and PVC Cardiology consulted Echo done; pending report [id number] Code: Full Dispo: home cardiac recs Time Spent Managing Pts Care (In Minutes): 55
[2025-07-28 12:27] VITALS: BP 121/69; TEMP 98.3
--- NOTE | 2025-07-28 14:42 | P.PN ---
Subjective Date of Service: 07/28/25 Chief Complaint: Chest pain No acute events overnight. Now chest pain-free. Family at bedside. Troponins mildly elevated, but flat. Echocardiogram is unremarkable. Physical Examination - Vital Signs Temperature: 98.3 F Blood Pressure: 121/69 Pulse: 57 Respirations: 18 Pulse Ox (%): 100 - Physical Exam General: In no apparent distress, Oriented x3 HEENT: Atraumatic, Normocephalic, EOMI Neck: JVD not distended Respiratory: Clear to auscultation bilaterally Cardiovascular: No edema, Normal pulses, Regular rate/rhythm, Normal S1 S2, No rubs, No murmurs Capillary refill: <2 Seconds Gastrointestinal: Normal bowel sounds Musculoskeletal: No clubbing, No swelling Integumentary: No rashes Neurological: Normal speech - Studies Reviewed Imagings Data: Reviewed Assessment And Plan - Current Problems (Diagnosis) (1) Chest pain Status: Acute Plan: Etiology unclear, likely mild viral myopericarditis. Echocardiogram with normal LVEF and no pericardial effusion. Mild elevation in hsTnI (peak 63), flat trend. TSH, ESR, CRP, DDimer all negative. Patient is now asymptomatic. Recommend exercise restrictions. If symptoms recur, consider colchicine. Patient may follow-up me in 1-2 weeks for further monitoring. Qualifiers: Chest pain type: unspecified Qualified Code(s): R07.9 - Chest pain, unspecified (2) Hypertension Status: Chronic Plan: Non-compliant with lisinopril x 1 month per patient. Can resume at discharge. Qualifiers: Hypertension type: unspecified Qualified Code(s): I10 - Essential (primary) hypertension (3) Elevated troponin Status: Acute Plan: as above. (4) Nicotine abuse Status: Chronic Plan: Education provided regarding risks associated with nicotine use. Continue to support cessation efforts. - Plan Thank you for the consult. Please call with any questions.
--- NOTE | 2025-07-29 06:44 | P.DS ---
Admission Date: 07/27/25 Discharge Date: 07/28/25 Disposition: ROUTINE DISCHARGE Discharge Condition: GOOD Reason for Admission: Chest pain Consultations: Cardiology - Dr. Mi Brief History of Present Illness: 19yo M, PMH: HTN (previously on lisionpril) presents to ED due to chest pressure and abnormal EKG. He reports palpitations and squeezing pressure/discomfort yesterday after lunch. He was at work ([employer]) when this occurred. He presented to [facility] ER, trop 30s x2, EKG with t wave inversions/flattening. He was discharged home. Mom took him to urgent care today, due to some ongoing shortness of breath. There, he was told his EKG was abnormal and should come to ER. He denies any chest pain right now, but feels some slight tightness and shortness of breath. Troponin was mildly elevated in 60s. EKG with LVH, and PVC. Patient was seen by Cardiology, Dr. Mi in ER, who recommended obs and trend trop. Patient states he was diagnosed with HTN ~6 months ago. He was having headaches and not feeling well. He was started on lisinopril, however he has not been compliant - stopped taking ~2 months ago. Reports runny nose since Thursday - attributes to allergies. no fever Hospital Course: Problem List: Chest pain Hypertension Physician discharge instructions: Patient presented with chest pressure and abnormal EKG. He reports palpitations and chest pressure prior to admission while working. He was taken to urgent care where he was told his EKG was abnormal and should come to ER. EKG on arrival showed LVH and PVC. Troponins were mildly elevated but trended flat. Echo was done this hospitalization and was normal. CRP, D-dimer, chest x-ray were all negative. He did report having a runny nose a few days prior, attributed this to allergies. Cardiology, Dr. Mi, was consulted. Given the negative workup, stability of troponin, suspect this may be a mild viral myocarditis. He reported no chest pain since admission. Dr. Mi recommended exercise limitation. Follow up in his office in 1-2 weeks. Avoid high-intensity / strenuous exercise / activity. Avoid nicotine products. Avoid alcohol. Medications: Ibuprofen if you have chest pain. Can continue to hold lisinopril. Check BP at home daily. Follow up with Cardiology for further discussion. Follow up: PCP 3-5 days Cardiollgy - Dr. Mi in 1-2 weeks. Please call to schedule / confirm appointments Physical Exam: GEN: Alert, oriented, NAD CV: Regular rate and rhythm, no edema Pulm:Nonlabored respirations on room air, clear bilaterally ABD: soft, nontender, nondistended Neuro: Normal speech, normal affect Vital Signs/Physical Exam: Temp Pulse Resp BP Pulse Ox 98.3 F 57 18 121/69 100 07/28/25 14:41 07/28/25 14:41 07/28/25 14:41 07/28/25 14:41 07/28/25 14:41 Laboratory Data at Discharge: WBC 7.80 thou/uL (4.3-10.9) 07/28/25 06:33 Hgb 15.1 g/dL (13.6-17.9) 07/28/25 06:33 Hct 43.5 % (39.6-49.0) 07/28/25 06:33 Plt Count 212 thou/uL (152-406) 07/28/25 06:33 PT 13.2 SECONDS (10-13.0) H 07/27/25 16:51 INR 1.17 07/27/25 16:51 Sodium 140 mEq/L (136-145) 07/28/25 06:23 Potassium 4.0 mEq/L (3.5-5.1) 07/28/25 06:23 BUN 10 mg/dL (7-18) 07/28/25 06:23 Creatinine 0.86 mg/dL (0.70-1.30) 07/28/25 06:23 Glucose 105 mg/dL (74-106) 07/28/25 06:23 Magnesium 2.2 mg/dL (1.6-2.4) 07/28/25 06:23 Total Bilirubin 1.7 mg/dL (0.2-1.0) H 07/27/25 13:56 AST 16 U/L (15-37) 07/27/25 13:56 ALT 34 U/L (16-61) 07/27/25 13:56 Alkaline Phosphatase 111 U/L (45-117) 07/27/25 13:56 Home Medications: lisinopriL [Lisinopril] 10 mg PO DAILY 10/09/25 Physician Discharge Instructions: Physician discharge instructions: Patient presented with chest pressure and abnormal EKG. He reports palpitations and chest pressure prior to admission while working. He was taken to urgent care where he was told his EKG was abnormal and should come to ER. EKG on arrival showed LVH and PVC. Troponins were mildly elevated but trended flat. Echo was done this hospitalization and was normal. CRP, D-dimer, chest x-ray were all negative. He did report having a runny nose a few days prior, attributed this to allergies. Cardiology, Dr. Mi, was consulted. Given the negative workup, stability of troponin, suspect this may be a mild viral myocarditis. He reported no chest pain since admission. Dr. Mi recommended exercise limitation. Follow up in his office in 1-2 weeks. Avoid high-intensity / strenuous exercise / activity. Avoid nicotine products. Avoid alcohol. Medications: Ibuprofen if you have chest pain. Can continue to hold lisinopril. Check BP at home daily. Follow up with Cardiology for further discussion. Follow up: PCP 3-5 days Cardiollgy - Dr. Mi in 1-2 weeks. Please call to schedule / confirm appointments Followup: Miya Mi MD [ACTIVE - CAN ADMIT] - 1-2 Weeks ([address] [place] [address] ) NONE,NONE [Primary Care Provider] - 2-3 Days (See list provided for local family doctors in our area.) Time spent managing pt's care (in minutes): 45
== END 2025-07-28 14:28 | disposition home or self-care (01) ==
LOC: ER 13:07 → ERHOLD 16:02 → 4TH 17:11
PROVIDERS: ADMIT Hospitalist; ATTEND Hospitalist
DX: R07.9 Chest pain, unspecified (principal); I10 Essential (primary) hypertension; R00.2 Palpitations; R94.31 Abnormal electrocardiogram [ECG] [EKG]; R06.02 Shortness of breath; R51.9 Headache, unspecified; F17.210 Nicotine dependence, cigarettes, uncomplicated; R79.89 Other specified abnormal findings of blood chemistry
CPT/HCPCS: 36415; 71045; 80048; 80076; 80307; 83735; 83880; 84443; 84484; 85025; 85379; 85610; 86140; 93005; 93306; 99285; G0378